=== PATIENT | male | born 1975 | race Caucasian/White ===

== ENCOUNTER → 2017-08-29 | Outpatient (CLI) | payer BC ==
--- NOTE | 2017-08-29 11:37 | US ---
EXAMINATION TYPE: US abdomen complete DATE OF EXAM: 08/29/2017 COMPARISON: NONE CLINICAL HISTORY: R10.9 Abdominal pain. Epigastric fullness, NPO EXAM MEASUREMENTS: Liver Length: 15.5 cm Gallbladder Wall: 0.2 cm CHD: 0.3 cm Spleen: 12.9 cm Right Kidney: 9.7 x 5.8 x 5.5 cm Left Kidney: 10.6 cm long axis Pancreas: wnl Liver: Echogenic with areas of focal sparing seen adjacent to GB Gallbladder: wnl Evidence for sonographic Molina's sign: neg CBD: Obscured by overlying bowel gas CHD: wnl Spleen: upper limits of normal in size Right Kidney: wnl Left Kidney: wnl Upper IVC: not well visualized due to overlying bowel gas Abd Aorta: Proximal obscured by overlying bowel gas The visualized liver is heterogeneously hyperechoic. Evaluation for focal masses suboptimal due to th e heterogeneity. No intrahepatic ductal dilatation is seen. Suspect fatty infiltration as there is m ore hypoechoic area near gallbladder fossa. The intrahepatic portion of the IVC and visualized abdomi nal aorta are within normal limits. There is no evidence of cholelithiasis. Common bile duct is unr emarkable. The visualized portions of the pancreas are homogenous. The spleen is upper limits of no rmal in size without focal intrasplenic lesion. Kidneys are symmetric and free of hydronephrosis. N o renal lesions are seen. IMPRESSION: No suspicious finding is seen to account for patient's symptoms. Incidental mild diffuse fatty infiltration of liver.
== END | disposition home or self-care (01) ==
LOC: RADUSWWP 10:07
PROVIDERS: ATTEND Family Medicine
DX: K76.0 Fatty (change of) liver, not elsewhere classified (principal)
CPT/HCPCS: 76700

== ENCOUNTER → 2018-01-26 | Outpatient (CLI) | payer BC ==
--- NOTE | 2018-01-27 23:51 | MR ---
EXAMINATION TYPE: MR shoulder RT wo con DATE OF EXAM: 01/26/2018 COMPARISON: Outside right shoulder x-ray January 09, 2018 HISTORY: Chronic Right Shoulder Pain x6 months TECHNIQUE: Multiplanar, multisequence imaging of the right shoulder is performed without contrast. FINDINGS: Rotator Cuff: Supraspinatus and infraspinatus tendons are both grossly intact. No full thickness retr acted tears are seen. Subscapularis tendon is intact. Rotator cuff muscle bulk is preserved. Acromioclavicular Joint: Mild narrowing acromioclavicular joint is present. No significant spurring i s seen. Distal acromion morphology is unremarkable. Inferior fat plane is maintained. Glenohumeral Joint: There is small glenohumeral joint effusion. No significant spurring is seen. Some narrowing is present. Labrum: The labrum appears grossly intact given limitation of non-arthrogram study. Biceps Tendon: The long head of biceps is in normal location within bicipital groove. Bone marrow signal: No focal abnormal marrow signal is appreciated. Other: No additional significant abnormality is appreciated. IMPRESSION: No distinct rotator cuff or labral tear is present.
== END | disposition home or self-care (01) ==
LOC: RADMRIMAIN 17:26
PROVIDERS: ATTEND Orthopaedic Surgery
DX: M25.511 Pain in right shoulder (principal)

== ENCOUNTER → 2018-05-30 | Outpatient (CLI) | payer BC | LOC: NEUROMAIN 06:48 | PROVIDERS: ATTEND Otolaryngology | DX: R53.1 Weakness (principal) | CPT/HCPCS: 92537; 92540 ==

== ENCOUNTER → 2018-07-24 | Outpatient (CLI) | payer BC | END | disposition home or self-care (01) | LOC: CPPFTMAIN 12:36 | PROVIDERS: ATTEND Internal Medicine | DX: J45.909 Unspecified asthma, uncomplicated (principal) | CPT/HCPCS: 94060; 94726; 94729 ==

== ENCOUNTER 2019-09-17 16:14 | Emergency (ER) | payer BC, OTHER ==
[2019-09-17 16:26] VITALS: BP 159/87; TEMP 98.3
[2019-09-17] MEDS ORDERED: KETOROLAC 30 MG/ML 1 ML VIAL IVP STA (17:17)
[2019-09-17] MEDS ORDERED: LIDOCAINE 1% INJ 10MG/ML (20 ML MDV) SQ ONE (17:17)
[2019-09-17] MEDS ORDERED: DIPH,PERTUS(ACELL)TETVAC-LF 0.5 ML VIAL IM ONE (17:18)
--- NOTE | 2019-09-17 17:50 | XR ---
EXAMINATION TYPE: XR hand complete RT DATE OF EXAM: 09/17/2019 COMPARISON: NONE HISTORY: Laceration TECHNIQUE: 3 views FINDINGS: Metacarpals are intact. I see no fracture nor dislocation. Joint spaces are normal. There a re no erosions. There is soft tissue laceration deformity between the first and second metacarpal hea ds. IMPRESSION: Laceration deformity. No fracture. No sign of a foreign body..
--- NOTE | 2019-09-17 18:05 | ED ---
General Adult HPI - General Chief complaint: Wound/Laceration Stated complaint: [facility]-Hand Injury Time Seen by Provider: 09/17/19 17:14 Source: patient, RN notes reviewed, old records reviewed Mode of arrival: ambulatory Limitations: no limitations - History of Present Illness Initial comments: 44 yo male presenting with laceration to the right hand. Patient had his hand caught in a machine at work. Patient states he was caught for some time before he was able to free his hand. Complaining of pain at the base of the right thumb as well as the first and second digit. He has laceration deformity. Patient is uncertain of his tetanus status. Denies any other injury. - Related Data Home Medications Medication Instructions Recorded Confirmed Ibuprofen [Motrin] 400 mg PO HS 03/28/14 03/19/15 Albuterol Inhaler (Mhu) [Ventolin 2 puff INHALATION RT-Q6H PRN 03/19/15 03/19/15 Hfa Inhaler (Mhu)] Budesonide-Formot 160-4.5 Mcg 1 puff INHALATION RT-BID PRN 03/19/15 03/19/15 [Symbicort 160-4.5 Mcg Inhaler] LORazepam [Ativan] 0.25 mg PO HS 03/19/15 03/19/15 Oxymetazoline 0.05% Nasl [place] 2 spray NASAL Q4H PRN 03/19/15 03/19/15 [Afrin 0.05% Nasal Tracy] Previous Rx's Medication Instructions Recorded Atorvastatin [Lipitor] 40 mg PO DAILY #30 tab 03/20/15 Cephalexin [Keflex] 500 mg PO Q6HR 5 Days #20 cap 09/17/19 Allergies Allergy/AdvReac Type Severity Reaction Status Date / Time prochlorperazine edisylate AdvReac Unknown anxiety Verified 03/19/15 16:05 [From Compazine] prochlorperazine maleate AdvReac Unknown anxiety Verified 03/19/15 16:05 [From Compazine] amoxicillin AdvReac Rash/Hives Verified 09/17/19 16:26 Penicillins AdvReac Rash/Hives Verified 09/17/19 16:26 Review of Systems ROS Statement: Those systems with pertinent positive or pertinent negative responses have been documented in the HPI. ROS Other: All systems not noted in ROS Statement are negative. Past Medical History Past Medical History: Asthma, GERD/Reflux Additional Past Medical History / Comment(s): 2--16 C/O C/P DIAPHORETIC,SOB NEAR SYNCOPE. ADMITTED WITH CLIONICAL IMPRESSION: PNE,NEAR SYNCOPE,TACHYCARDIA. 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 History of Any Multi-Drug Resistant Organisms: None Reported Additional Past Surgical History / Comment(s): DOUBLE HERNIA , LIP RECONSTRUCTION FOR DOG BITE, GANGLION CYST ON WRIST, SURGERY FOR SLEEP APNEA.rt endoscopic plantar fasciotomy. Past Anesthesia/Blood Transfusion Reactions: No Reported Reaction, Motion Sickness Past Psychological History: Anxiety Smoking Status: Never smoker Past Alcohol Use History: None Reported Past Drug Use History: None Reported - Past Family History Mother Family Medical History: Osteoarthritis (OA) Additional Family Medical History / Comment(s): MIGRAINES Father Family Medical History: Coronary Artery Disease (CAD), Myocardial Infarction ([place]) Additional Family Medical History / Comment(s): CARDIAC STENTS General Exam Limitations: no limitations General appearance: alert, in no apparent distress Head exam: Present: atraumatic, normocephalic Eye exam: Present: normal appearance, PERRL ENT exam: Present: normal exam Neck exam: Present: normal inspection. Absent: tenderness, meningismus Respiratory exam: Present: normal lung sounds bilaterally. Absent: respiratory distress, wheezes Cardiovascular Exam: Present: regular rate, normal rhythm GI/Abdominal exam: Present: soft. Absent: distended, tenderness Extremities exam: Present: other (Irregular stellate laceration full-thickness, no underlying muscle or tendon injury visible. This is stellate in nature measuring approximately 5 cm, irregular border.) Course Vital Signs 09/17/19 09/17/19 16:20 18:10 Temperature 98.3 F Pulse Rate 106 H 80 Respiratory 18 14 Rate Blood Pressure 159/87 O2 Sat by Pulse 98 98 Oximetry Procedures - Laceration Laceration #1 Consent Obtained: verbal consent Indication: laceration Site: hand Description: stellate, flap Depth: simple, single layer Anesthetic Used: lidocaine 1% Anesthesia Technique: local infiltration Amount (mls): 5 Pre-repair: wound explored, irrigated extensively, deep structures intact Type of Sutures: nylon Size of Sutures: 4-0 Number of Sutures: 10 Technique: simple, interrupted Patient Tolerated Procedure: well Medical Decision Making - Medical Decision Making 44-year-old male with laceration to the right thenar eminence. This is copiously irrigated with tap water. Tetanus is updated. Laceration is repaired with 10 4-0 nylon sutures. I did discuss case with Dr. Jordan, will be able to evaluate this patient tomorrow for reevaluation. Patient is neurovascularly intact, no spiked underlying muscle or tendon injury. Patient will ice and elevate his hand, take Motrin for pain. He is given prophylactic antibiotics. Disposition Clinical Impression: Laceration Disposition: HOME SELF-CARE Condition: Good Instructions (If sedation given, give patient instructions): Laceration (ED) Prescriptions: Cephalexin [Keflex] 500 mg PO Q6HR 5 Days #20 cap Is patient prescribed a controlled substance at d/c from ED?: No Referrals: Abe Canales MD [Primary Care Provider] - 1-2 days Addison Hicks DO [Doctor of Osteopathic Medicine] - 1-2 days Time of Disposition: 18:04
[2019-09-17 18:11] VITALS: PULSE 80; RESP 14
[2019-09-17] MEDS ORDERED: BACITRACIN OINT 1 EACH PACKET TOPICAL ONE (18:15)
== END 2019-09-17 18:10 | disposition home or self-care (01) ==
LOC: EC 16:14
DX: S61.411A Laceration without foreign body of right hand, initial encounter (principal); J45.909 Unspecified asthma, uncomplicated; F41.9 Anxiety disorder, unspecified; Z23 Encounter for immunization; Z79.899 Other long term (current) drug therapy; Z88.8 Allergy status to other drugs, medicaments and biological substances; Z88.0 Allergy status to penicillin; W31.9XXA Contact with unspecified machinery, initial encounter; Y92.69 Other specified industrial and construction area as the place of occurrence of the external cause; Y99.0 Civilian activity done for income or pay
CPT/HCPCS: 73130; 90715; 99284; 12002; 90471; J2001

== ENCOUNTER 2019-09-19 00:12 | Emergency (ER) | payer BC, OTHER ==
[2019-09-19 00:23] VITALS: BP 130/86; PULSE 78; RESP 18; TEMP 97.9
--- NOTE | 2019-09-19 00:50 | ED ---
Allergic Reaction HPI - General Stated complaint: Poss allergic reaction Time Seen by Provider: 09/19/19 00:17 Source: patient Mode of arrival: ambulatory Limitations: no limitations - History of Present Illness Initial Comments: This patient is a 44-year-old man presenting to be evaluated for suspected ALLERGIC reaction. The patient states that he had been seen here and had been given Keflex to take for prophylaxis against a hand injury getting infected. Patient states that he had taken doses of this and then this evening noted that he was starting to develop itching and he noted hives. Patient states that he has had previous ALLERGIC reaction to taking amoxicillin. In addition to the hives he noted that his throat was feeling scratchy. No coughing. No wheezing. No dyspnea. I patient does state that he took Benadryl at home and then came here in case the reaction was worsening. He does note that since leaving home his hives have resolved. He states that his throat is also feeling improved. MD Complaint: allergic reaction, hives -: hour(s) Exposure: medication Symptoms: rash, itching, hoarseness Severity: moderate Treatment Prior to Arrival: benadryl Previous Allergy History: other - Related Data Home Medications Medication Instructions Recorded Confirmed Ibuprofen [Motrin] 400 mg PO HS 03/28/14 03/19/15 Albuterol Inhaler (Mhu) [Ventolin 2 puff INHALATION RT-Q6H PRN 03/19/15 03/19/15 Hfa Inhaler (Mhu)] Budesonide-Formot 160-4.5 Mcg 1 puff INHALATION RT-BID PRN 03/19/15 03/19/15 [Symbicort 160-4.5 Mcg Inhaler] LORazepam [Ativan] 0.25 mg PO HS 03/19/15 03/19/15 Oxymetazoline 0.05% Nasl [place] 2 spray NASAL Q4H PRN 03/19/15 03/19/15 [Afrin 0.05% Nasal [place]] Previous Rx's Medication Instructions Recorded Atorvastatin [Lipitor] 40 mg PO DAILY #30 tab 03/20/15 Cephalexin [Keflex] 500 mg PO Q6HR 5 Days #20 cap 09/17/19 Sulfamethox-Tmp 800-160Mg [Bactrim 1 each PO Q12HR #14 tab 09/19/19 Ds] predniSONE 60 mg PO DAILY #30 tab 09/19/19 Allergies Allergy/AdvReac Type Severity Reaction Status Date / Time prochlorperazine edisylate AdvReac Unknown anxiety Verified 03/19/15 16:05 [From Compazine] prochlorperazine maleate AdvReac Unknown anxiety Verified 03/19/15 16:05 [From Compazine] amoxicillin AdvReac Rash/Hives Verified 09/17/19 16:26 Penicillins AdvReac Rash/Hives Verified 09/17/19 16:26 Review of Systems ROS Statement: Those systems with pertinent positive or pertinent negative responses have been documented in the HPI. ROS Other: All systems not noted in ROS Statement are negative. Constitutional: Denies: fever ENT: Reports: as per HPI, throat pain Respiratory: Denies: cough, dyspnea, wheezes Cardiovascular: Denies: chest pain, palpitations, edema, syncope Gastrointestinal: Denies: abdominal pain, nausea, vomiting, diarrhea Skin: Reports: rash, pruritus. Denies: lesions Past Medical History Past Medical History: Asthma, GERD/Reflux Additional Past Medical History / Comment(s): 2-05-29 C/O C/P DIAPHORETIC,SOB N EAR SYNCOPE. ADMITTED WITH CLIONICAL IMPRESSION: PNE,NEAR SYNCOPE,TACHYCARDIA. 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 History of Any Multi-Drug Resistant Organisms: None Reported Additional Past Surgical History / Comment(s): DOUBLE HERNIA , LIP RECONSTRUCTION FOR DOG BITE, GANGLION CYST ON WRIST, SURGERY FOR SLEEP APNEA.rt endoscopic plantar fasciotomy. Past Anesthesia/Blood Transfusion Reactions: No Reported Reaction, Motion Sickness Past Psychological History: Anxiety Smoking Status: Never smoker Past Alcohol Use History: None Reported Past Drug Use History: None Reported - Past Family History Mother Family Medical History: Osteoarthritis (OA) Additional Family Medical History / Comment(s): MIGRAINES Father Family Medical History: Coronary Artery Disease (CAD), Myocardial Infarction ([place]) Additional Family Medical History / Comment(s): CARDIAC STENTS General Exam Limitations: no limitations General appearance: alert, in no apparent distress Head exam: Present: atraumatic, normocephalic Eye exam: Present: normal appearance. Absent: scleral icterus, conjunctival injection ENT exam: Present: normal oropharynx, mucous membranes moist Respiratory exam: Present: normal lung sounds bilaterally. Absent: respiratory distress, wheezes, rales, rhonchi, stridor Cardiovascular Exam: Present: regular rate, normal rhythm, normal heart sounds. Absent: systolic murmur, diastolic murmur, rubs, gallop GI/Abdominal exam: Present: soft. Absent: distended, tenderness, guarding, rebound Neurological exam: Present: alert Skin exam: Present: warm, dry, intact, normal color. Absent: rash, urticaria, vesicles Course Vital Signs 09/19/19 09/19/19 00:18 00:41 Temperature 97.9 F Pulse Rate 78 Respiratory 18 18 Rate Blood Pressure 130/86 O2 Sat by Pulse 100 Oximetry Medical Decision Making - Medical Decision Making Patient's 44-year-old man with ALLERGIC reaction to antibiotic use as prophylaxis against hand infection. I did instruct patient to stop using the Keflex. He will continue using Benadryl for symptoms as necessary. I did prescribe prescription for steroid to use if the Benadryl alone does not resolve the symptoms. In addition, prescribed Bactrim to use should the patient begin to develop any signs or symptoms of an infection. Discussed appropriate further care and follow-up. Discussed return parameters. Disposition Clinical Impression: Allergic reaction caused by a drug Disposition: HOME SELF-CARE Condition: Good Instructions (If sedation given, give patient instructions): Antibiotic Medication Allergy (ED) Prescriptions: Sulfamethox-Tmp 800-160Mg [Bactrim Ds] 1 each PO Q12HR #14 tab predniSONE 60 mg PO DAILY #30 tab Is patient prescribed a controlled substance at d/c from ED?: No Referrals: Abe Canales MD [Primary Care Provider] - 1-2 days
== END 2019-09-19 01:00 | disposition home or self-care (01) ==
LOC: EC 00:12
DX: R21 Rash and other nonspecific skin eruption (principal); T36.95XA Adverse effect of unspecified systemic antibiotic, initial encounter; F41.9 Anxiety disorder, unspecified; J45.909 Unspecified asthma, uncomplicated; Z79.51 Long term (current) use of inhaled steroids; Z88.8 Allergy status to other drugs, medicaments and biological substances; Z88.0 Allergy status to penicillin
CPT/HCPCS: 99283

== ENCOUNTER → 2019-11-22 | Outpatient (CLI) | payer BC | END | disposition home or self-care (01) | LOC: LABWHC1 13:23 | PROVIDERS: ATTEND Internal Medicine Clinical Cardiac Electrophysiology | DX: U07.1 COVID-19 (principal) | CPT/HCPCS: U0003; C9803 ==

== ENCOUNTER 2020-02-02 05:50 | Inpatient (IN) | payer BC ==
[2020-02-02] MEDS ORDERED: ACETAMINOPHEN TAB 500 MG TAB PO STA ×2 (06:06→08:46)
[2020-02-02] MEDS ORDERED: SODIUM CHLORIDE 0.9% 1,000 ML IV ONE (06:07)
[2020-02-02] MEDS ORDERED: ONDANSETRON 4 MG/2 ML VIAL IVP STA (06:19)
[2020-02-02] MEDS: SODIUM CHLORIDE 0.9% 1,000 ML IV SCH ×2 (06:33→19:09)
--- NOTE | 2020-02-02 06:33 | ED ---
General Adult HPI - General Chief complaint: Nausea/Vomiting/Diarrhea Stated complaint: Cough, Vomiting Time Seen by Provider: 02/02/20 06:04 Source: patient, RN notes reviewed, old records reviewed Mode of arrival: ambulatory Limitations: no limitations - History of Present Illness Initial comments: Patient is a 44-year-old male who presents emergency department today with 2 weeks of nausea vomiting and cough. He is diagnosed with coving 19 infection 2 weeks ago. Patient states that he's had some episodes of coughing up blood. He states is generally very fatigued bodyaches. Patient states that he has history of asthma. He denies any other significant past medical history. Patient arrived emergency department hypoxic satting at 90% on room air. - Related Data Home Medications Medication Instructions Recorded Confirmed Budesonide-Formot 160-4.5 Mcg 1 puff INHALATION RT-BID 03/19/15 02/02/20 [Symbicort 160-4.5 Mcg Inhaler] Albuterol Sulfate [Ventolin HFA] 2 puff INHALATION RT-QID PRN 02/02/20 02/02/20 Ibuprofen [Motrin] 800 mg PO Q8H 02/02/20 02/02/20 LORazepam [Ativan] 1 mg PO HS PRN 02/02/20 02/02/20 Allergies Allergy/AdvReac Type Severity Reaction Status Date / Time prochlorperazine edisylate AdvReac Unknown anxiety Verified 02/02/20 05:57 [From Compazine] prochlorperazine maleate AdvReac Unknown anxiety Verified 02/02/20 05:57 [From Compazine] amoxicillin AdvReac Rash/Hives Verified 02/02/20 05:57 Penicillins AdvReac Rash/Hives Verified 02/02/20 05:57 Review of Systems ROS Statement: Those systems with pertinent positive or pertinent negative responses have been documented in the HPI. ROS Other: All systems not noted in ROS Statement are negative. Past Medical History Past Medical History: Asthma, GERD/Reflux Additional Past Medical History / Comment(s): 2-4-16 C/O C/P DIAPHORETIC,SOB NEAR SYNCOPE. ADMITTED WITH CLIONICAL IMPRESSION: PNE,NEAR SYNCOPE,TACHYCARDIA. 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 History of Any Multi-Drug Resistant Organisms: None Reported Additional Past Surgical History / Comment(s): DOUBLE HERNIA , LIP RECONSTRUCTION FOR DOG BITE, GANGLION CYST ON WRIST, SURGERY FOR SLEEP APNEA.rt endoscopic plantar fasciotomy. Past Anesthesia/Blood Transfusion Reactions: No Reported Reaction, Motion Sickness Past Psychological History: Anxiety Smoking Status: Never smoker Past Alcohol Use History: None Reported Past Drug Use History: None Reported - Past Family History Mother Family Medical History: Osteoarthritis (OA) Additional Family Medical History / Comment(s): MIGRAINES Father Family Medical History: Coronary Artery Disease (CAD), Myocardial Infarction ([place]) Additional Family Medical History / Comment(s): CARDIAC STENTS General Exam - General Exam Comments Initial Comments: 44-year-old male. Alert and oriented. Patient is very fatigued. Limitations: no limitations General appearance: alert, in no apparent distress Head exam: Present: atraumatic, normocephalic, normal inspection Eye exam: Present: normal appearance, PERRL, EOMI. Absent: scleral icterus, conjunctival injection, periorbital swelling ENT exam: Present: normal exam, mucous membranes moist Neck exam: Present: normal inspection. Absent: tenderness, meningismus, lymphadenopathy Respiratory exam: Present: decreased breath sounds. Absent: normal lung sounds bilaterally, respiratory distress, wheezes, rales, rhonchi, stridor Cardiovascular Exam: Present: regular rate, normal rhythm, normal heart sounds. Absent: systolic murmur, diastolic murmur, rubs, gallop, clicks GI/Abdominal exam: Present: soft, normal bowel sounds. Absent: distended, tenderness, guarding, rebound, rigid Extremities exam: Present: normal inspection, full ROM, normal capillary refill. Absent: tenderness, pedal edema, joint swelling, calf tenderness Back exam: Present: normal inspection Neurological exam: Present: alert, oriented X3, CN II-XII intact Psychiatric exam: Present: normal affect, normal mood Course Vital Signs 02/02/20 02/02/20 02/02/20 05:53 06:59 08:05 Temperature 98.9 F Pulse Rate 113 H 98 Respiratory 24 19 20 Rate Blood Pressure 109/72 119/70 O2 Sat by Pulse 93 L 98 90 L Oximetry Medical Decision Making - Medical Decision Making Patient's 44-year-old male with history of asthma with 2 weeks of Covid 19 diagnosis. He's had nausea vomiting worsened shortness of breath. He rides emergency Department very weak and hypoxic. He was started on IV fluids and given Zofran for nausea and lab work obtained. Patient had a negative d-dimer. Chest x-ray shows developing infiltrate consistent with Covid pneumonia as well as small pleural effusion noted. Patient is placed on oxygen and did have good oxygenation 97% however when this was removed he dropped to 90% on room air. Patient case was discussed with Dr. Harley who discussed with sounds physician. - Lab Data Result diagrams: 02/02/20 06:34 02/02/20 06:34 Lab Results 02/02/20 02/02/20 02/02/20 Range/Units 06:34 06:34 06:34 WBC 4.6 (3.8-10.6) k/uL RBC 5.20 (4.30-5.90) m/uL Hgb 15.6 (13.0-17.5) gm/dL Hct 45.2 (39.0-53.0) % MCV 86.9 (80.0-100.0) fL MCH 30.1 (25.0-35.0) pg MCHC 34.6 (31.0-37.0) g/dL RDW 12.0 (11.5-15.5) % Plt Count 126 L (150-450) k/uL MPV 7.4 Neutrophils % 82 % Lymphocytes % 9 % Monocytes % 7 % Eosinophils % 0 % Basophils % 1 % Neutrophils # 3.8 (1.3-7.7) k/uL Lymphocytes # 0.4 L (1.0-4.8) k/uL Monocytes # 0.3 (0-1.0) k/uL Eosinophils # 0.0 (0-0.7) k/uL Basophils # 0.0 (0-0.2) k/uL PT 10.3 (9.0-12.0) sec INR 1.0 (<1.2) APTT 26.8 (22.0-30.0) sec D-Dimer 0.38 (<0.60) mg/L FEU Sodium 136 L (137-145) mmol/L Potassium 4.8 (3.5-5.1) mmol/L Chloride 106 (98-107) mmol/L Carbon Dioxide 22 (22-30) mmol/L Anion Gap 8 mmol/L BUN 23 H (9-20) mg/dL Creatinine 0.86 (0.66-1.25) mg/dL Est GFR (CKD-EPI)AfAm >90 (>60 ml/min/1.73 sqM) Est GFR (CKD-EPI)NonAf >90 (>60 ml/min/1.73 sqM) Glucose 117 H (74-99) mg/dL Plasma Lactic Acid Behzad (0.7-2.0) mmol/L Calcium 8.4 (8.4-10.2) mg/dL Magnesium 2.0 (1.6-2.3) mg/dL Total Bilirubin 0.9 (0.2-1.3) mg/dL AST 42 (17-59) U/L ALT 58 H (4-49) U/L Alkaline Phosphatase 60 (38-126) U/L Lactate Dehydrogenase 944 H (313-618) U/L C-Reactive Protein 41.8 H (<10.0) mg/L Total Protein 6.5 (6.3-8.2) g/dL Albumin 3.4 L (3.5-5.0) g/dL 02/02/20 Range/Units 06:34 WBC (3.8-10.6) k/uL RBC (4.30-5.90) m/uL Hgb (13.0-17.5) gm/dL Hct (39.0-53.0) % MCV (80.0-100.0) fL MCH (25.0-35.0) pg MCHC (31.0-37.0) g/dL RDW (11.5-15.5) % Plt Count (150-450) k/uL MPV Neutrophils % % Lymphocytes % % Monocytes % % Eosinophils % % Basophils % % Neutrophils # (1.3-7.7) k/uL Lymphocytes # (1.0-4.8) k/uL Monocytes # (0-1.0) k/uL Eosinophils # (0-0.7) k/uL Basophils # (0-0.2) k/uL PT (9.0-12.0) sec INR (<1.2) APTT (22.0-30.0) sec D-Dimer (<0.60) mg/L FEU Sodium (137-145) mmol/L Potassium (3.5-5.1) mmol/L Chloride (98-107) mmol/L Carbon Dioxide (22-30) mmol/L Anion Gap mmol/L BUN (9-20) mg/dL Creatinine (0.66-1.25) mg/dL Est GFR (CKD-EPI)AfAm (>60 ml/min/1.73 sqM) Est GFR (CKD-EPI)NonAf (>60 ml/min/1.73 sqM) Glucose (74-99) mg/dL Plasma Lactic Acid Behzad 1.1 (0.7-2.0) mmol/L Calcium (8.4-10.2) mg/dL Magnesium (1.6-2.3) mg/dL Total Bilirubin (0.2-1.3) mg/dL AST (17-59) U/L ALT (4-49) U/L Alkaline Phosphatase (38-126) U/L Lactate Dehydrogenase (313-618) U/L C-Reactive Protein (<10.0) mg/L Total Protein (6.3-8.2) g/dL Albumin (3.5-5.0) g/dL 02/02/20 06:38 EKG performed at 6:27 AM shows sinus tachycardia otherwise normal EKG. Ventricular rate of 104 bpm. Intervals 150 ms. QS duration is 88 ms. QT QTc is 338/444 ms. - Radiology Data Radiology results: report reviewed Findings are worrisome for early Covid 19 pneumonia. Small left pleural effusion. Disposition Clinical Impression: COVID-19, Pneumonia Disposition: ADMITTED IP TO THIS HOSP Condition: Good Is patient prescribed a controlled substance at d/c from ED?: No Referrals: Abe Canales MD [Primary Care Provider] - 1-2 days Time of Disposition: 08:45
[2020-02-02 06:50] LABS: Basophils % (A) 1 %; Eosinophils % (A) 0 %; HCT 45.2 % (39.0-53.0); HGB 15.6 gm/dL (13.0-17.5); Lymphocytes # (A) 0.4 k/uL (1.0-4.8); Lymphocytes % (A) 9 %; MCH 30.1 pg (25.0-35.0); MCHC 34.6 g/dL (31.0-37.0); MCV 86.9 fL (80.0-100.0); Mean Platelet Volume 7.4; Monocytes # (A) 0.3 k/uL (0-1.0); Monocytes % (A) 7 %; Neutrophils # (A) 3.8 k/uL (1.3-7.7); Neutrophils % (A) 82 %; Platelet Count 126 k/uL (150-450); WBC 4.6 k/uL (3.8-10.6)
[2020-02-02 07:03] LABS: African American GFR (CKD) >90 (>60 ml/min/1.73 sqM); Albumin 3.4 g/dL (3.5-5.0); Anion Gap 8 mmol/L; C Reactive Protein 41.8 mg/L (<10.0); Calcium 8.4 mg/dL (8.4-10.2); Carbon Dioxide 22 mmol/L (22-30); Chloride 106 mmol/L (98-107); Glucose 117 mg/dL (74-99); LDH 944 U/L (313-618); Non-African American GFR(CKD) >90 (>60 ml/min/1.73 sqM); Sodium 136 mmol/L (137-145); Total Bilirubin 0.9 mg/dL (0.2-1.3); Total Protein 6.5 g/dL (6.3-8.2)
--- NOTE | 2020-02-02 07:03 | XR ---
EXAM: XR Chest, 1 View CLINICAL HISTORY: ITS.REASON XR Reason: Suspected COVID-19 pneumonia TECHNIQUE: Frontal view of the chest. COMPARISON: 03/19/2015. FINDINGS: Lungs: The lungs are well aerated. Patchy airspace disease the periphery of the right mid lower lung zones. Possible minimal airspace disease medially at the left lung base per Pleural space: Small left pleural effusion appeared No pneumothorax. Heart: Cardiomediastinal silhouette unremarkable. Mediastinum: See above. Bones/joints: Osteopenia. IMPRESSION: 1. Findings worrisome for early Covid-19 pneumonia. 2. Small left pleural effusion.
[2020-02-02 07:06] LABS: D-Dimer 0.38 mg/L FEU (<0.60); Partial Thromboplastin Time 26.8 sec (22.0-30.0); Prothrombin Time 10.3 sec (9.0-12.0)
[2020-02-02 07:11] LABS: ALT 58 U/L (4-49); AST 42 U/L (17-59); Alkaline Phosphatase 60 U/L (38-126); Blood Urea Nitrogen 23 mg/dL (9-20); Potassium 4.8 mmol/L (3.5-5.1)
[2020-02-02] MEDS ORDERED: ALBUTEROL HFA INHALER INHALATION PRN (08:46)
[2020-02-02] MEDS ORDERED: ALBUTEROL HFA INHALER INHALATION STA (08:46)
[2020-02-02] MEDS ORDERED: IBUPROFEN 800 MG TAB PO SCH (09:00)
[2020-02-02] MEDS: DEXAMETHASONE SOD PHOSPHATE 10 MG/ML 1 ML VIAL IV SCH (09:06)
[2020-02-02] MEDS ORDERED: ONDANSETRON 4 MG/2 ML VIAL IVP PRN (10:17)
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
[2020-02-02] MEDS ORDERED: IBUPROFEN 800 MG TAB PO PRN (10:50)
[2020-02-02] MEDS: CHOLECALCIFEROL 1,000 UNIT TAB PO SCH (11:48)
[2020-02-02] MEDS: ZINC SULFATE 220 MG CAP PO SCH (11:49)
[2020-02-02] MEDS: ASCORBIC ACID 500 MG TAB PO SCH (11:49)
[2020-02-02] MEDS: ENOXAPARIN 40 MG/0.4 ML SYRINGE SQ SCH (11:49)
[2020-02-02 12:35] LABS: Ferritin 784.1 ng/mL (22.0-322.0)
[2020-02-02] MEDS: ALBUTEROL HFA INHALER INHALATION PRN (18:55)
[2020-02-02] MEDS: SYMBICORT 160-4.5 MCG INHALER INHALATION SCH (18:55)
[2020-02-02] MEDS: LORazepam 1 MG TAB PO PRN (21:16)
[2020-02-02] MEDS: MELATONIN 5 MG TABLET PO SCH (21:17)
[2020-02-03] MEDS: SODIUM CHLORIDE 0.9% 1,000 ML IV SCH ×2 (00:12→10:09)
[2020-02-03] MEDS: SYMBICORT 160-4.5 MCG INHALER INHALATION SCH ×2 (09:16→19:14)
[2020-02-03] MEDS: ALBUTEROL HFA INHALER INHALATION PRN ×3 (09:16→16:01)
[2020-02-03] MEDS: ASCORBIC ACID 500 MG TAB PO SCH (10:08)
[2020-02-03] MEDS: DEXAMETHASONE SOD PHOSPHATE 10 MG/ML 1 ML VIAL IV SCH (10:08)
[2020-02-03] MEDS: ZINC SULFATE 220 MG CAP PO SCH (10:08)
[2020-02-03] MEDS: CHOLECALCIFEROL 1,000 UNIT TAB PO SCH (10:09)
[2020-02-03] MEDS: ENOXAPARIN 40 MG/0.4 ML SYRINGE SQ SCH (11:34)
--- NOTE | 2020-02-03 12:52 | P.PN ---
Subjective Progress Note Date: 02/03/20 Patient reports shortness of breath today and cough that is generally nonproductive. He feels that his shortness of breath is worse compared to yesterday. No other complaints. Objective - Vital Signs Vital signs: Vital Signs Temp 98.2 F 02/03/20 08:00 Pulse 95 02/03/20 08:00 Resp 18 02/03/20 08:00 BP 107/72 02/03/20 08:00 Pulse Ox 96 02/03/20 08:00 Intake & Output 02/02/20 02/03/20 02/03/20 18:59 06:59 18:59 Weight 88.451 kg Other: Voiding Method Toilet Toilet # Voids 3 1 - Exam General: The patient is awake and alert, in no distress Eye: there is normal conjunctiva bilaterally. Neck: The neck is supple, there is no JVD. Cardiovascular: Normal S1-S2, no S3-S4, no murmurs. Respiratory: Lungs clear to auscultation bilaterally Gastrointestinal: Abdomen is soft, nontender Musculoskeletal: There is no pedal edema. Neurological:. Speech is normal. Skin: Skin is warm and dry - Labs CBC & Chem 7: 02/02/20 06:34 02/02/20 06:34 Labs: Microbiology - Last 24 Hours (Table) 02/02/20 06:34 Blood Culture - Preliminary Blood No Growth after 24 hours 02/02/20 06:34 Blood Culture - Preliminary Blood No Growth after 24 hours Assessment and Plan Assessment: This is a 44-year-old male who presented to the emergency room with worsening generalized fatigue, chills, and some shortness of breath. He was diagnosed with Covid19 at an outside urgent care approximately 10 days ago. Repeat repeat testing in the ER was positive. Patient was evaluated and admitted to the hospital for further management of his medical problems noted below 1. Covid 19 pneumonia, started on dexamethasone 6 mg daily day #2. Continue to monitor inflammatory markers. Vitamin C, vitamin D, zinc, and melatonin ordered. Mucinex twice daily 2. Acute hypoxic respiratory failure: Wean off O2 as tolerated for O2 sats greater than 90%. 3. Covid 19 associated nausea, resolved. continue Zofran as needed. 4. Underlying asthma with no evidence of exacerbation. Continue albuterol inhaler as needed. Symbicort twice daily 5. DVT prophylaxis with subcu Lovenox Repeat inflammatory markers and chest x-ray in the morning. May discharge home tomorrow if improving.
[2020-02-03] MEDS: guaiFENesin 600 MG TABLET.ER PO SCH ×2 (13:50→20:28)
[2020-02-03] MEDS: MELATONIN 5 MG TABLET PO SCH (20:28)
[2020-02-03] MEDS: LORazepam 1 MG TAB PO PRN (20:28)
[2020-02-04] MEDS: ALBUTEROL HFA INHALER INHALATION PRN ×2 (07:33→11:09)
[2020-02-04] MEDS: SYMBICORT 160-4.5 MCG INHALER INHALATION SCH (07:33)
--- NOTE | 2020-02-04 07:34 | XR ---
EXAMINATION TYPE: XR chest 1V portable DATE OF EXAM: 02/04/2020 COMPARISON: 02/02/2000 HISTORY: Shortness of breath TECHNIQUE: Single frontal view of the chest is obtained. FINDINGS: There is patchy infiltrate left lower lobe small effusion and within the left. Antegrade. No pneumothorax. Heart size normal. Osseous structures IMPRESSION: Bilateral patchy areas of infiltrate correlate for pneumonia.
[2020-02-04] MEDS: guaiFENesin 600 MG TABLET.ER PO SCH (08:36)
[2020-02-04] MEDS: DEXAMETHASONE SOD PHOSPHATE 10 MG/ML 1 ML VIAL IV SCH (08:36)
[2020-02-04] MEDS: ZINC SULFATE 220 MG CAP PO SCH (08:36)
[2020-02-04] MEDS: CHOLECALCIFEROL 1,000 UNIT TAB PO SCH (08:36)
[2020-02-04] MEDS: ASCORBIC ACID 500 MG TAB PO SCH (08:36)
[2020-02-04] MEDS: ENOXAPARIN 40 MG/0.4 ML SYRINGE SQ SCH (08:37)
[2020-02-04] MEDS ORDERED: dexAMETHasone 2 MG TAB PO SCH (09:00)
[2020-02-04 10:38] VITALS: BP 114/68; PULSE 80; RESP 17; TEMP 98.2
--- NOTE | 2020-02-04 11:31 | P.DS ---
Providers Date of admission: 02/02/20 08:32 Expected date of discharge: 02/04/20 Attending physician: Ella Del Cid Primary care physician: Abe Butler Hospital Course: This is a 44-year-old male who presented to the emergency room with worsening generalized fatigue, chills, and some shortness of breath. He was diagnosed with Covid19 at an outside urgent care approximately 10 days ago. Repeat repeat testing in the ER was positive. Patient was evaluated and admitted to the hospital for further management of his medical problems noted below 1. Covid 19 pneumonia, started on dexamethasone 6 mg daily day #3. Vitamin C, vitamin D, zinc, and melatonin ordered. Mucinex twice daily 2. Acute hypoxic respiratory failure on presentation: Weaned off O2 with O2 sats greater than 92% on room a 3. Covid 19 associated nausea, resolved. 4. Underlying asthma with no evidence of exacerbation. Continue albuterol inhaler as needed. Symbicort twice daily Patient's overall condition improved significantly. He will finish 10 days course of Decadron. Patient will be discharged home in a stable condition. For further details about this hospitalization please refer to the electronic chart. Time spent on discharge > 30 minutes including counseling and coordination of care Patient Condition at Discharge: Good Plan - Discharge Summary Discharge Rx Participant: Yes New Discharge Prescriptions: New RX: Dexamethasone [Decadron] 6 mg PO DAILY #7 tablet RX: Melatonin 5 mg PO HS #14 tablet RX: guaiFENesin [Mucinex] 1,200 mg PO Q12HR #14 tablet.er RX: Zinc Sulfate [Orazinc] 220 mg PO DAILY #14 cap RX: Ascorbic Acid [Vitamin C] 1,000 mg PO DAILY #14 tab RX: Cholecalciferol [Vitamin D3 (25 Mcg = 1000 Iu)] 2,000 unit PO DAILY #14 tab Continue RX: Budesonide-Formot 160-4.5 Mcg [Symbicort 160-4.5 Mcg Inhaler] 1 puff INHALATION RT-BID RX: Albuterol Sulfate [Ventolin HFA] 2 puff INHALATION RT-QID PRN PRN Reason: Shortness Of Breath RX: LORazepam [Ativan] 1 mg PO HS PRN PRN Reason: Anxiety RX: Ibuprofen [Motrin] 800 mg PO Q8H Discharge Medication List RX: Budesonide-Formot 160-4.5 Mcg [Symbicort 160-4.5 Mcg Inhaler] 1 puff INHALATION RT-BID 03/19/15 [History] RX: Albuterol Sulfate [Ventolin HFA] 2 puff INHALATION RT-QID PRN 02/02/20 [History] RX: Ibuprofen [Motrin] 800 mg PO Q8H 02/02/20 [History] RX: LORazepam [Ativan] 1 mg PO HS PRN 02/02/20 [History] RX: Ascorbic Acid [Vitamin C] 1,000 mg PO DAILY #14 tab 02/04/20 [Rx] RX: Cholecalciferol [Vitamin D3 (25 Mcg = 1000 Iu)] 2,000 unit PO DAILY #14 tab 02/04/20 [Rx] RX: Dexamethasone [Decadron] 6 mg PO DAILY #7 tablet 02/04/20 [Rx] RX: Melatonin 5 mg PO HS #14 tablet 02/04/20 [Rx] RX: Zinc Sulfate [Orazinc] 220 mg PO DAILY #14 cap 02/04/20 [Rx] RX: guaiFENesin [Mucinex] 1,200 mg PO Q12HR #14 tablet.er 02/04/20 [Rx] Follow up Appointment(s)/Referral(s): Abe Canales MD [Primary Care Provider] - 10 Days Discharge Disposition: HOME SELF-CARE
[2020-02-04 16:34] LABS: C Reactive Protein 1.4 mg/dL (0.0-0.8)
[2020-02-04 16:49] LABS: Ferritin 550.1 ng/mL (22.0-322.0)
== END 2020-02-04 14:01 | disposition home or self-care (01) | DRG 177 ==
LOC: EC 05:50 → 4SSUR 08:32
PROVIDERS: ADMIT Internal Medicine; ATTEND Internal Medicine
DX: U07.1 COVID-19 (principal); J12.89 Other viral pneumonia; J96.01 Acute respiratory failure with hypoxia; K21.9 Gastro-esophageal reflux disease without esophagitis; J45.909 Unspecified asthma, uncomplicated; F41.9 Anxiety disorder, unspecified; Z79.51 Long term (current) use of inhaled steroids; Z79.899 Other long term (current) drug therapy; Z88.1 Allergy status to other antibiotic agents; Z88.0 Allergy status to penicillin; Z88.8 Allergy status to other drugs, medicaments and biological substances; Z87.820 Personal history of traumatic brain injury; Z82.49 Family history of ischemic heart disease and other diseases of the circulatory system; Z82.61 Family history of arthritis
CPT/HCPCS: 36415; 71045; 80053; 82728; 83605; 83615; 83735; 84145; 85025; 85379; 85610; 85730; 86140; 87040; 87635; 93005; 94640; 96361; 96365; 96375; 99285

== ENCOUNTER 2020-08-18 19:21 | Emergency (ER) | payer BC, OTHER ==
[2020-08-18 19:26] VITALS: TEMP 97.9
[2020-08-18] MEDS ORDERED: ONDANSETRON 4 MG/2 ML VIAL IVP STA (19:42)
[2020-08-18] MEDS ORDERED: HYDROmorphone 1 MG/ML 1 ML SYRINGE IVP STA (19:42)
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
--- NOTE | 2020-08-18 20:42 | XR ---
EXAMINATION TYPE: XR wrist limited RT DATE OF EXAM: 08/18/2020 COMPARISON: NONE HISTORY: Pain TECHNIQUE: 2 view FINDINGS: There is comminuted impacted transverse fracture distal radial metaphysis. Fracture lines e xtend to the wrist joint. Distal ulna is intact. Carpal bones appear intact. IMPRESSION: Severely comminuted and impacted distal radius fracture.
[2020-08-18 21:18] VITALS: BP 146/88; PULSE 101; RESP 18
[2020-08-18] MEDS ORDERED: HYDROmorphone 0.5 MG/0.5 ML SYRINGE IVP STA (21:33)
== END 2020-08-18 21:53 | disposition other institution (70) ==
LOC: EC 19:21
DX: S52.501A Unspecified fracture of the lower end of right radius, initial encounter for closed fracture (principal); J45.909 Unspecified asthma, uncomplicated; K21.9 Gastro-esophageal reflux disease without esophagitis; F41.9 Anxiety disorder, unspecified; Z79.51 Long term (current) use of inhaled steroids; Z79.899 Other long term (current) drug therapy; W01.0XXA Fall on same level from slipping, tripping and stumbling without subsequent striking against object, initial encounter; Y92.009 Unspecified place in unspecified non-institutional (private) residence as the place of occurrence of the external cause
CPT/HCPCS: 73100; 29125; 96374; 96375; 96376; 99284; J2405; J1170 ×2

== ENCOUNTER 2022-01-15 23:09 | Emergency (ER) | payer MEDICAID ==
[2022-01-15 23:13] VITALS: BP 154/96; PULSE 84; RESP 18; TEMP 97.9
[2022-01-16] MEDS ORDERED: ONDANSETRON 4 MG/2 ML VIAL IVP STA (00:11)
[2022-01-16] MEDS ORDERED: SODIUM CHLORIDE 0.9% 1,000 ML IV STA (00:11)
--- NOTE | 2022-01-16 00:11 | ED ---
Nausea/Vomiting/Diarrhea HPI - General Chief complaint: Nausea/Vomiting/Diarrhea Stated complaint: Vomiting Time Seen by Provider: 01/16/22 00:08 Source: patient, RN notes reviewed, old records reviewed Mode of arrival: ambulatory Limitations: no limitations - History of Present Illness Initial comments: This is a 46-year-old male to the ER for evaluation of nausea vomiting abdominal pain. Abdominal bloating and pain. Positive vomiting. No travel show sick contacts no fevers no abdominal surgery history. Patient has no real significant medical history. Takes no regular medications denies drugs or alcohol MD complaint: nausea, vomiting, abdominal pain -: hour(s) Description of Vomiting: food contents Location: diffuse, periumbilical Radiation: none Severity: moderate Severity scale (1-10): 7 Quality: crushing, sharp Consistency: intermittent Improves with: none Worsens with: none Context: sick contacts Associated Symptoms: denies other symptoms, loss of appetite, nausea/vomiting, weakness - Related Data Home Medications Medication Instructions Recorded Confirmed Budesonide-Formot 160-4.5 Mcg 1 puff INHALATION RT-BID 03/19/15 02/02/20 [Symbicort 160-4.5 Mcg Inhaler] Albuterol Sulfate [Ventolin HFA] 2 puff INHALATION RT-QID PRN 02/02/20 02/02/20 Ibuprofen [Motrin] 800 mg PO Q8H 02/02/20 02/02/20 LORazepam [Ativan] 1 mg PO HS PRN 02/02/20 02/02/20 Previous Rx's Medication Instructions Recorded Ascorbic Acid [Vitamin C] 1,000 mg PO DAILY #14 tab 02/04/20 Cholecalciferol [Vitamin D3 (25 2,000 unit PO DAILY #14 tab 02/04/20 Mcg = 1000 Iu)] Melatonin 5 mg PO HS #14 tablet 02/04/20 Zinc Sulfate [Orazinc] 220 mg PO DAILY #14 cap 02/04/20 dexAMETHasone [Decadron] 6 mg PO DAILY #7 tablet 02/04/20 guaiFENesin [Mucinex] 1,200 mg PO Q12HR #14 tablet.er 02/04/20 Allergies Allergy/AdvReac Type Severity Reaction Status Date / Time prochlorperazine edisylate AdvReac Unknown anxiety Verified 01/15/22 23:13 [From Compazine] prochlorperazine maleate AdvReac Unknown anxiety Verified 01/15/22 23:13 [From Compazine] amoxicillin AdvReac Rash/Hives Verified 01/15/22 23:13 Penicillins AdvReac Rash/Hives Verified 01/15/22 23:13 Review of Systems ROS Statement: Those systems with pertinent positive or pertinent negative responses have been documented in the HPI. ROS Other: All systems not noted in ROS Statement are negative. Past Medical History Past Medical History: Asthma, GERD/Reflux Additional Past Medical History / Comment(s): 2-4-16 C/O C/P DIAPHORETIC,SOB NEAR SYNCOPE. ADMITTED WITH CLIONICAL IMPRESSION: PNE,NEAR SYNCOPE,TACHYCARDIA. 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 History of Any Multi-Drug Resistant Organisms: None Reported Additional Past Surgical History / Comment(s): DOUBLE HERNIA INFANT, LIP RECONSTRUCTION FOR DOG BITE, GANGLION CYST ON WRIST, SURGERY FOR SLEEP APNEA.rt endoscopic plantar fasciotomy. Past Anesthesia/Blood Transfusion Reactions: No Reported Reaction, Motion Sickness Past Psychological History: Anxiety Smoking Status: Never smoker Past Alcohol Use History: None Reported Past Drug Use History: None Reported - Past Family History Mother Family Medical History: Osteoarthritis (OA) Additional Family Medical History / Comment(s): MIGRAINES Father Family Medical History: Coronary Artery Disease (CAD), Myocardial Infarction ([place]) Additional Family Medical History / Comment(s): CARDIAC STENTS General Exam Limitations: no limitations General appearance: alert, in no apparent distress Head exam: Present: atraumatic, normocephalic, normal inspection Eye exam: Present: normal appearance, PERRL, EOMI. Absent: scleral icterus, conjunctival injection, periorbital swelling ENT exam: Present: normal exam, mucous membranes moist Neck exam: Present: normal inspection. Absent: tenderness, meningismus, lymphadenopathy Respiratory exam: Present: normal lung sounds bilaterally. Absent: respiratory distress, wheezes, rales, rhonchi, stridor Cardiovascular Exam: Present: regular rate, normal rhythm, normal heart sounds. Absent: systolic murmur, diastolic murmur, rubs, gallop, clicks GI/Abdominal exam: Present: soft, normal bowel sounds. Absent: distended, tenderness, guarding, rebound, rigid Extremities exam: Present: normal inspection, full ROM, normal capillary refill. Absent: tenderness, pedal edema, joint swelling, calf tenderness Back exam: Present: normal inspection Neurological exam: Present: alert, oriented X3, CN II-XII intact Psychiatric exam: Present: normal affect, normal mood Skin exam: Present: warm, dry, intact, normal color. Absent: rash Course Vital Signs 01/15/22 23:11 Temperature 97.9 F Pulse Rate 84 Respiratory 18 Rate Blood Pressure 154/96 O2 Sat by Pulse 96 Oximetry - Reevaluation(s) Reevaluation #1: 01/16/22 Medical record is reviewed Patient symptoms improved here in the ER Patient informed results and questions answered Medical Decision Making - Medical Decision Making 46 male to the emergency department for evaluation of bloating abdominal pain nausea vomiting. Patient presents today for nausea vomiting and abdominal pain. Computed tomography scan is negative symptoms are improving he can be discharged home - Lab Data Result diagrams: 01/16/22 00:16 01/16/22 00:16 Lab Results 01/16/22 01/16/22 01/16/22 Range/Units 00:16 00:16 00:16 WBC 7.9 (3.8-10.6) k/uL RBC 5.40 (4.30-5.90) m/uL Hgb 16.4 (13.0-17.5) gm/dL Hct 48.6 (39.0-53.0) % MCV 90.0 (80.0-100.0) fL MCH 30.4 (25.0-35.0) pg MCHC 33.8 (31.0-37.0) g/dL RDW 12.8 (11.5-15.5) % Plt Count 139 L (150-450) k/uL MPV 9.0 Neutrophils % 77 % Lymphocytes % 15 % Monocytes % 5 % Eosinophils % 1 % Basophils % 1 % Neutrophils # 6.1 (1.3-7.7) k/uL Lymphocytes # 1.2 (1.0-4.8) k/uL Monocytes # 0.4 (0-1.0) k/uL Eosinophils # 0.1 (0-0.7) k/uL Basophils # 0.1 (0-0.2) k/uL Sodium 137 (137-145) mmol/L Potassium 4.1 (3.5-5.1) mmol/L Chloride 103 (98-107) mmol/L Carbon Dioxide 26 (22-30) mmol/L Anion Gap 8 mmol/L BUN 22 H (9-20) mg/dL Creatinine 0.90 (0.66-1.25) mg/dL Est GFR (CKD-EPI)AfAm >90 (>60 ml/min/1.73 sqM) Est GFR (CKD-EPI)NonAf >90 (>60 ml/min/1.73 sqM) Glucose 153 H (74-99) mg/dL Plasma Lactic Acid Behzad 1.6 (0.7-2.0) mmol/L Calcium 9.7 (8.4-10.2) mg/dL Phosphorus 2.5 (2.5-4.5) mg/dL Magnesium 2.1 (1.6-2.3) mg/dL Total Bilirubin 0.5 (0.2-1.3) mg/dL AST 21 (17-59) U/L ALT 29 (4-49) U/L Alkaline Phosphatase 62 (38-126) U/L Troponin I (0.000-0.034) ng/mL Total Protein 7.3 (6.3-8.2) g/dL Albumin 4.5 (3.5-5.0) g/dL Lipase 55 (23-300) U/L 01/16/22 Range/Units 00:16 WBC (3.8-10.6) k/uL RBC (4.30-5.90) m/uL Hgb (13.0-17.5) gm/dL Hct (39.0-53.0) % MCV (80.0-100.0) fL MCH (25.0-35.0) pg MCHC (31.0-37.0) g/dL RDW (11.5-15.5) % Plt Count (150-450) k/uL MPV Neutrophils % % Lymphocytes % % Monocytes % % Eosinophils % % Basophils % % Neutrophils # (1.3-7.7) k/uL Lymphocytes # (1.0-4.8) k/uL Monocytes # (0-1.0) k/uL Eosinophils # (0-0.7) k/uL Basophils # (0-0.2) k/uL Sodium (137-145) mmol/L Potassium (3.5-5.1) mmol/L Chloride (98-107) mmol/L Carbon Dioxide (22-30) mmol/L Anion Gap mmol/L BUN (9-20) mg/dL Creatinine (0.66-1.25) mg/dL Est GFR (CKD-EPI)AfAm (>60 ml/min/1.73 sqM) Est GFR (CKD-EPI)NonAf (>60 ml/min/1.73 sqM) Glucose (74-99) mg/dL Plasma Lactic Acid Behzad (0.7-2.0) mmol/L Calcium (8.4-10.2) mg/dL Phosphorus (2.5-4.5) mg/dL Magnesium (1.6-2.3) mg/dL Total Bilirubin (0.2-1.3) mg/dL AST (17-59) U/L ALT (4-49) U/L Alkaline Phosphatase (38-126) U/L Troponin I <0.012 (0.000-0.034) ng/mL Total Protein (6.3-8.2) g/dL Albumin (3.5-5.0) g/dL Lipase (23-300) U/L - Radiology Data Radiology results: report reviewed (CT of the abdomen and pelvis negative for acute disease), image reviewed Disposition Clinical Impression: Nausea & vomiting, Abdominal pain Disposition: HOME SELF-CARE Condition: Good Instructions (If sedation given, give patient instructions): Acute Nausea and Vomiting (ED) Is patient prescribed a controlled substance at d/c from ED?: No Referrals: Joon Martin DO [Primary Care Provider] - 1-2 days Time of Disposition: 02:20
[2022-01-16 00:29] LABS: Basophils # (A) 0.1 k/uL (0-0.2); Basophils % (A) 1 %; Eosinophils # (A) 0.1 k/uL (0-0.7); Eosinophils % (A) 1 %; HCT 48.6 % (39.0-53.0); HGB 16.4 gm/dL (13.0-17.5); Lymphocytes # (A) 1.2 k/uL (1.0-4.8); Lymphocytes % (A) 15 %; MCH 30.4 pg (25.0-35.0); MCHC 33.8 g/dL (31.0-37.0); Monocytes # (A) 0.4 k/uL (0-1.0); Monocytes % (A) 5 %; Neutrophils # (A) 6.1 k/uL (1.3-7.7); Neutrophils % (A) 77 %; Platelet Count 139 k/uL (150-450); RDW 12.8 % (11.5-15.5); WBC 7.9 k/uL (3.8-10.6)
[2022-01-16 00:57] LABS: ALT 29 U/L (4-49); AST 21 U/L (17-59); African American GFR (CKD) >90 (>60 ml/min/1.73 sqM); Albumin 4.5 g/dL (3.5-5.0); Alkaline Phosphatase 62 U/L (38-126); Anion Gap 8 mmol/L; Blood Urea Nitrogen 22 mg/dL (9-20); Calcium 9.7 mg/dL (8.4-10.2); Carbon Dioxide 26 mmol/L (22-30); Chloride 103 mmol/L (98-107); Glucose 153 mg/dL (74-99); Lipase 55 U/L (23-300); Magnesium 2.1 mg/dL (1.6-2.3); Non-African American GFR(CKD) >90 (>60 ml/min/1.73 sqM); Phosphorus 2.5 mg/dL (2.5-4.5); Potassium 4.1 mmol/L (3.5-5.1); Sodium 137 mmol/L (137-145); Total Bilirubin 0.5 mg/dL (0.2-1.3); Total Protein 7.3 g/dL (6.3-8.2)
[2022-01-16] MEDS ORDERED: diphenhydrAMINE 50 MG/ML 1 ML VIAL IVP STA (01:15)
[2022-01-16] MEDS ORDERED: MORPHINE SULFATE 4 MG/ML SYRINGE IVP STA (01:15)
[2022-01-16] MEDS ORDERED: METOCLOPRAMIDE 5 MG/ML 2 ML VIAL IVP STA (01:15)
--- NOTE | 2022-01-16 02:06 | CT ---
EXAMINATION TYPE: CT abdomen pelvis wo con DATE OF EXAM: 01/16/2022 COMPARISON: None HISTORY: Vomiting CT DLP: 731 mGycm Automated exposure control for dose reduction was used. Images obtained from the diaphragm to the floor of the pelvis with no contrast. The lung bases are clear. No pleural effusion. Heart size is normal. No pericardial effusion. Liver s pleen and stomach pancreas appear intact. The bile ducts are not dilated. Gallbladder appears normal. There is no adrenal mass. Kidneys show normal size and contour. No hydronephrosis. Ureters are not di lated. There is 3 mm calculus lateral left kidney. No retroperitoneal adenopathy. Appendix is inferior and appears normal there is no mesenteric edema. No ascites or free air. No sign of a bowel obstruction. The bladder distends smoothly. No inguinal hernia. No evidence of a pelvic mass. The lumbar vertebrae have normal alignment. Posterior elements are intact. No compression fracture. T here is vacuum disc at L5-S1. Bony pelvis is intact. IMPRESSION: Normal appendix. No acute abnormality in the abdomen and pelvis. Nonobstructing left renal calculus.
[2022-01-16] MEDS ORDERED: ONDANSETRON 4 MG ODT STARTER PACK 2 TAB BTL PO STA (02:17)
[2022-01-16] MEDS ORDERED: ACET/COD 300 MG/30 MG STARTER PACK 6 TAB BTL PO STA (02:17)
== END 2022-01-16 02:36 | disposition home or self-care (01) ==
LOC: EC 23:09
DX: R11.2 Nausea with vomiting, unspecified (principal); R10.9 Unspecified abdominal pain; F41.9 Anxiety disorder, unspecified; J45.909 Unspecified asthma, uncomplicated; G47.30 Sleep apnea, unspecified; Z88.9 Allergy status to unspecified drugs, medicaments and biological substances; Z88.0 Allergy status to penicillin
CPT/HCPCS: 36415; 80053; 83605; 83690; 83735; 84100; 84484; 85025; 74176; 99284; 96374; 96375; 96361 ×2; J2270; J2405; S0119

== ENCOUNTER 2022-05-24 09:06 | Day surgery (SDC) | payer MEDICAID ==
[2022-05-19 10:23] VITALS: BMI 28.5
[~2022-05-24 09:06] MED LIST: LACTATED RINGERS 1,000 ML IV SCH; LIDOCAINE 1% (10MG/ML) FOR IV START INTRADERMA PRN
[2022-05-24 09:45] VITALS: TEMP 97.7
[2022-05-24] MEDS ORDERED: LIDOCAINE 2% INJ 20 MG/ML (2 ML VIAL) ONE (10:16)
[2022-05-24] MEDS ORDERED: PROPOFOL 10 MG/ML 20 ML VIAL IV ONE (10:16)
--- NOTE | 2022-05-24 10:30 | P.GSHP ---
History of Present Illness H&P Date: 05/24/22 Chief Complaint: Colon cancer screening 46-year-old male here for colonoscopy. He has not had 1 previously. Family history of colon cancer in his grandmother and his mother had many polyps. No bowel complaints. Past Medical History Past Medical History: Asthma, GERD/Reflux, Pneumonia Additional Past Medical History / Comment(s): 2--16 ER SOB NEAR SYNCOPE.TACHYCARDIA PNEUMONIA . OTHER PAST HX INLUDES: HX OF SLEEP APNEA (RESOLVED WITH SURGERY), MIGRAINES, TORN LUMBAR DISCS. SHERIE PLANTAR FASCIITIS.anxiety, BROKEN RT ARM and wrist AND LT ARM. CONCUSSION TEENAGER. covid x 2 History of Any Multi-Drug Resistant Organisms: None Reported Past Surgical History: Hernia Repair, Orthopedic Surgery Additional Past Surgical History / Comment(s): DOUBLE HERNIA , LIP RECONSTRUCTION FOR DOG BITE, GANGLION CYST ON WRIST, SURGERY FOR SLEEP APNEA. bilateral endoscopic plantar fasciotomy. right wrist repair Past Anesthesia/Blood Transfusion Reactions: No Reported Reaction, Motion Sickness Additional Past Anesthesia/Blood Transfusion Reaction / Comment(s): slow to come out of anesthesia Past Psychological History: Anxiety Smoking Status: Never smoker Past Alcohol Use History: Rare Additional Past Alcohol Use History / Comment(s): SMOKED FOR LESS THAN 1 YEAR Past Drug Use History: None Reported - Past Family History Mother Family Medical History: Osteoarthritis (OA) Additional Family Medical History / Comment(s): MIGRAINES Father Family Medical History: Coronary Artery Disease (CAD), Myocardial Infarction ([place]) Additional Family Medical History / Comment(s): CARDIAC STENTS Medications and Allergies Home Medications Medication Instructions Recorded Confirmed Type Albuterol Sulfate [Ventolin HFA] 2 puff INHALATION RT-QID PRN 02/02/20 05/19/22 History Ibuprofen [Motrin] 800 mg PO DAILY 02/02/20 05/19/22 History LORazepam [Ativan] 0.25 mg PO HS PRN 02/02/20 05/19/22 History Cholecalciferol [Vitamin D3 (25 2,000 unit PO DAILY #14 tab 02/04/20 05/19/22 Rx Mcg = 1000 Iu)] Fluticasone/Umeclidin/Vilanter 1 inhalation INHALATION DAILY 05/19/22 05/19/22 History [Abel Ellipta 100-62.5-25] Allergies Allergy/AdvReac Type Severity Reaction Status Date / Time prochlorperazine edisylate AdvReac Unknown anxiety Verified 05/19/22 10:15 [From Compazine] prochlorperazine maleate AdvReac Unknown anxiety Verified 05/19/22 10:15 [From Compazine] amoxicillin AdvReac Rash/Hives Verified 05/19/22 10:15 Penicillins AdvReac Rash/Hives Verified 05/19/22 10:15 Surgical - Exam Vital Signs Temp Pulse Resp BP Pulse Ox 97.7 F 96 20 122/97 99 05/24/22 09:40 05/24/22 09:40 05/24/22 09:40 05/24/22 09:40 05/24/22 09:40 Physical exam: General: Well-developed, well-nourished HEENT: Normocephalic, sclerae nonicteric Abdomen: Nontender, nondistended Extremities: No edema Neuro: Alert and oriented Assessment and Plan (1) Colon cancer screening Narrative/Plan: Will proceed with colonoscopy at this time. Current Visit: Yes Status: Acute Code(s): Z12.11 - ENCOUNTER FOR SCREENING FOR MALIGNANT NEOPLASM OF COLON SNOMED Code(s): 169957796
--- NOTE | 2022-05-24 10:40 | P.PCN ---
Date of Procedure: 05/24/22 Procedure(s) Performed: PREOPERATIVE DIAGNOSIS: Colon cancer screening, family history of colon cancer in grandmother and colon polyps in mother POSTOPERATIVE DIAGNOSIS: Small rectal polyp PROCEDURE: Colonoscopy with biopsy ANESTHESIA: MAC SURGEON: Eric Gastelum M.D. SPECIMENS: Rectum ENDOSCOPIC PROCEDURE: The patient was placed on the endoscopy table in the left decubitus position. The Olympus colonoscope was inserted into the anus and passed under direct visualization to the base of the cecum. The appendiceal orifice was visualized. From that point the scope was slowly withdrawn inspecting all surfaces carefully. There were no neoplastic inflammatory or polypoid lesions throughout the cecum, ascending, transverse, descending, and sigmoid colon. In the rectum a small polyp was seen and removed using the cold biopsy forceps. There was no visible diverticulosis noted. Digital rectal exa mination was normal. The patient was taken to the recovery room in stable condition per anesthesia guidelines. RECOMMENDATIONS: Await biopsy results. Repeat colonoscopy based on pathology. Consider five-year follow-up given the patient's family history of colon cancer and colon polyps.
[2022-05-24] MEDS ORDERED: LACTATED RINGERS 1,000 ML IV ONE (10:43)
[2022-05-24 11:04] VITALS: BP 141/69; PULSE 81; RESP 16
== END 2022-05-24 11:27 | disposition home or self-care (01) ==
LOC: ORWHC2ENDO 09:06
PROVIDERS: ATTEND Surgery
DX: Z12.11 Encounter for screening for malignant neoplasm of colon (principal); K62.1 Rectal polyp; J45.909 Unspecified asthma, uncomplicated; K21.9 Gastro-esophageal reflux disease without esophagitis; G47.30 Sleep apnea, unspecified; Z83.71 Family history of colonic polyps; F41.9 Anxiety disorder, unspecified; Z86.59 Personal history of other mental and behavioral disorders; Z87.891 Personal history of nicotine dependence; Z82.49 Family history of ischemic heart disease and other diseases of the circulatory system; Z79.51 Long term (current) use of inhaled steroids; Z79.1 Long term (current) use of non-steroidal anti-inflammatories (NSAID); Z88.8 Allergy status to other drugs, medicaments and biological substances; Z88.0 Allergy status to penicillin
CPT/HCPCS: 88305; 45380; J2704; J2001